=== PATIENT | male | born 1960 | race Caucasian/White ===

== ENCOUNTER → 2017-09-13 | Outpatient (REF) | payer OTHER ==
[2017-09-13 15:45] LABS: CARBOXYHEMOGLOBIN 1.6 % (0.0-1.5)
[2017-09-15 10:10] LABS: ERYTHROPOIETIN 8.7 mIU/mL (2.6-18.5)
== END ==
LOC: M LAB REF 15:34
DX: R71.8 Other abnormality of red blood cells (principal)

== ENCOUNTER → 2017-09-26 | Outpatient (REF) | payer OTHER ==
[2017-09-26 20:22] LABS: FERRITIN 281 NG/ML (26-388); IRON (FE) 117 UG/DL (65-175); PERCENT SATURATION 37.1 % (19.7-50.0); TOTAL IRON BINDING CAPACITY 315 UG/DL (250-450)
== END ==
LOC: M LAB REF 19:02
DX: D75.1 Secondary polycythemia (principal)
CPT/HCPCS: 83550

== ENCOUNTER → 2017-10-03 | Outpatient (CLI) | payer OTHER ==
[~2017-10-03] MED LIST: GASTROGRAFIN SOLUTION 30ML (Q9963) As Ordered; ISOVUE-370 76% 100ML VIAL (Q9967) As Ordered
== END ==
LOC: M RAD 12:14
DX: D75.1 Secondary polycythemia (principal); N20.0 Calculus of kidney
CPT/HCPCS: Q9963

== ENCOUNTER → 2018-07-23 | Outpatient (CLI) | payer OTHER | LOC: M RAD 10:53 | DX: D75.1 Secondary polycythemia (principal); D18.03 Hemangioma of intra-abdominal structures; K76.0 Fatty (change of) liver, not elsewhere classified; N20.0 Calculus of kidney | CPT/HCPCS: Q9963 ==

== ENCOUNTER → 2022-09-07 | Outpatient (CLI) | payer OTHER ==
[~2022-09-07] MED LIST changes: -GASTROGRAFIN SOLUTION 30ML (Q9963) As Ordered; +HYDR12.55 PO; -ISOVUE-370 76% 100ML VIAL (Q9967) As Ordered; +RAMI1CAP26 PO
== END ==
LOC: M RAD 14:57
PROVIDERS: ATTEND Family Medicine
DX: R51.9 Headache, unspecified (principal); S06.0X0S Concussion without loss of consciousness, sequela; I10 Essential (primary) hypertension

== ENCOUNTER → 2022-09-15 | Outpatient (CLI) | payer OTHER ==
[2022-09-15 12:40] LABS: HEMATOCRIT 47.9 % (42.0-52.0); HEMOGLOBIN 17.2 g/dl (13.5-17.5)
== END ==
LOC: M LAB 12:04
PROVIDERS: ATTEND Family Medicine
DX: D75.1 Secondary polycythemia (principal); I10 Essential (primary) hypertension

== ENCOUNTER → 2022-10-11 | Outpatient (CLI) | payer OTHER | LOC: M LABSMTC 10:14 | PROVIDERS: ATTEND Anesthesiology | DX: Z01.812 Encounter for preprocedural laboratory examination (principal); Z20.822 Contact with and (suspected) exposure to COVID-19 ==

== ENCOUNTER 2022-10-16 12:37 | Day surgery (SDC) | payer OTHER ==
[~2022-10-16] VITALS: Ht 177.8 cm; Wt 84.8 kg
[~2022-10-16 12:37] MED LIST changes: +NS 1,000 ML IV ONE
[2022-10-16] MEDS ORDERED: propofoL 200 MG/20 ML VIAL As Ordered ONE (12:45)
[2022-10-16] MEDS ORDERED: LIDOCAINE 2% 100MG/5ML SDV (FOR ANES.) As Ordered ONE (12:45)
[2022-10-16 13:55] VITALS: BP 132/63
== END 2022-10-16 14:05 | disposition home or self-care (01) ==
LOC: M OPP 12:37
PROVIDERS: ATTEND Internal Medicine Gastroenterology
DX: Z12.11 Encounter for screening for malignant neoplasm of colon (principal); K64.0 First degree hemorrhoids; Z79.899 Other long term (current) drug therapy; I10 Essential (primary) hypertension; K76.0 Fatty (change of) liver, not elsewhere classified

== ENCOUNTER → 2023-05-01 | Outpatient (CLI) | payer OTHER ==
[~2023-05-01] MED LIST changes: -NS 1,000 ML IV ONE
== END ==
LOC: M SLEEP HO 11:20
PROVIDERS: ATTEND Internal Medicine Cardiovascular Disease
DX: G47.30 Sleep apnea, unspecified (principal); R06.83 Snoring

== ENCOUNTER → 2024-04-30 | Outpatient (CLI) | payer OTHER ==
[~2024-04-30] MED LIST changes: +RAMI10CA64 PO; -RAMI1CAP26 PO
[2024-04-30 09:55] LABS: BASO # 0.1 10^3/uL (0.0-0.2); BASO % 0.8 % (0.0-1.0); EOS # 0.3 10^3/uL (0.0-0.5); EOS % 3.7 % (0.0-3.0); HEMATOCRIT 50.4 % (42.0-52.0); HEMOGLOBIN 17.6 g/dl (13.5-17.5); LYMPH # 2.1 10^3/uL (1.5-5.0); LYMPH % 27.5 % (24.0-44.0); MEAN CORPUSCULAR HEMOGLOBIN 31.4 pg (27.0-33.0); MEAN CORPUSCULAR HGB CONC 34.9 g/dl (32.0-36.5); MONO # 0.5 10^3/uL (0.0-0.8); MONO % 6.8 % (2.0-8.0); NEUTROPHILS # 4.6 10^3/uL (1.5-8.5); NEUTROPHILS % 60.8 % (36.0-66.0); PLATELET COUNT, AUTOMATED 173 10^3/uL (150-450); WHITE BLOOD COUNT 7.6 10^3/uL (4.0-10.0)
[2024-04-30 09:56] LABS: APPEARANCE, URINE CLEAR (CLEAR); BACTERIA, URINE AUTO NEGATIVE (NEGATIVE); BILIRUBIN, URINE AUTO NEGATIVE (NEGATIVE); BLOOD, URINE BLOOD NEGATIVE (NEGATIVE); COLOR, URINE YELLOW (YELLOW); GLUCOSE, URINE (UA) AUTO NEGATIVE (NEGATIVE); KETONE, URINE AUTO NEGATIVE (NEGATIVE); LEUKOCYTE ESTERASE, URINE AUTO NEGATIVE (NEGATIVE); NITRITE, URINE AUTO NEGATIVE (NEGATIVE); PROTEIN, URINE AUTO NEGATIVE (NEGATIVE); RBC, URINE AUTO 2 /HPF (0-3); SPECIFIC GRAVITY URINE AUTO 1.018 (1.002-1.035); SQUAMOUS EPITHELIAL CELL UR AU 0 /HPF (0-6); UROBILINOGEN, URINE AUTO 0.2 mg/dL (0.0-2.0); WBC, URINE AUTO 1 /HPF (0-3)
[2024-04-30 10:30] LABS: MALB URINE SIEMENS < 3.0 MG/L
[2024-04-30 10:40] LABS: ALKALINE PHOSPHATASE 81 U/L (46-116); ALT/SGPT 47 U/L (7.0-40); AST/SGOT 30 U/L (<34); BILIRUBIN,TOTAL 1.9 MG/DL (0.3-1.2); BLOOD UREA NITROGEN 17 MG/DL (9-23); CALCIUM LEVEL 9.1 MG/DL (8.3-10.6); CARBON DIOXIDE LEVEL 32 MMOL/L (20-31); CHLORIDE LEVEL 101 MMOL/L (98-107); CHOLESTEROL LEVEL 215 MG/DL (<200); CHOLESTEROL RISK RATIO 5.82 (<5); CREATININE FOR GFR 1.13 MG/DL (0.70-1.30); GLOMERULAR FILTRATION RATE > 60.0 (>49); GLUCOSE, FASTING 98 MG/DL (74-106); HDL CHOLESTEROL 36.9 MG/DL (>40); LDL CHOLESTEROL 148.7 MG/DL (<100); NON-HDL-C 178.1 MG/DL; SODIUM LEVEL 139 MMOL/L (136-145); TRIGLYCERIDES LEVEL 147 MG/DL (<150)
[2024-04-30 10:41] LABS: CREATININE, URINE 244.4 MG/DL; MAU/CREAT RATIO 1.2 MCG/MG (0.0-30.0)
== END ==
LOC: M LAB 09:09
PROVIDERS: ATTEND Family Medicine
DX: E78.5 Hyperlipidemia, unspecified (principal); I10 Essential (primary) hypertension

== ENCOUNTER → 2024-06-26 | Outpatient (CLI) | payer OTHER ==
[2024-06-26 11:57] LABS: BASO # 0.1 10^3/uL (0.0-0.2); BASO % 0.7 % (0.0-1.0); EOS # 0.1 10^3/uL (0.0-0.5); EOS % 1.3 % (0.0-3.0); HEMATOCRIT 49.4 % (42.0-52.0); HEMOGLOBIN 17.3 g/dl (13.5-17.5); LYMPH # 2.6 10^3/uL (1.5-5.0); LYMPH % 30.7 % (24.0-44.0); MEAN CORPUSCULAR HEMOGLOBIN 31.1 pg (27.0-33.0); MEAN CORPUSCULAR VOLUME 88.7 fl (80.0-96.0); MONO # 0.6 10^3/uL (0.0-0.8); MONO % 6.6 % (2.0-8.0); NEUTROPHILS # 5.1 10^3/uL (1.5-8.5); NEUTROPHILS % 60.3 % (36.0-66.0); PLATELET COUNT, AUTOMATED 176 10^3/uL (150-450); RED BLOOD COUNT 5.57 10^6/uL (4.30-6.10); WHITE BLOOD COUNT 8.4 10^3/uL (4.0-10.0)
[2024-06-26 12:04] LABS: APPEARANCE, URINE CLEAR (CLEAR); BACTERIA, URINE AUTO NEGATIVE (NEGATIVE); BILIRUBIN, URINE AUTO NEGATIVE (NEGATIVE); BLOOD, URINE BLOOD NEGATIVE (NEGATIVE); COLOR, URINE YELLOW (YELLOW); GLUCOSE, URINE (UA) AUTO NEGATIVE (NEGATIVE); KETONE, URINE AUTO NEGATIVE (NEGATIVE); LEUKOCYTE ESTERASE, URINE AUTO NEGATIVE (NEGATIVE); MUCUS, URINE SMALL (NEGATIVE); NITRITE, URINE AUTO NEGATIVE (NEGATIVE); PROTEIN, URINE AUTO NEGATIVE (NEGATIVE); RBC, URINE AUTO 0 /HPF (0-3); SPECIFIC GRAVITY URINE AUTO 1.015 (1.002-1.035); SQUAMOUS EPITHELIAL CELL UR AU 0 /HPF (0-6); UROBILINOGEN, URINE AUTO 0.2 mg/dL (0.0-2.0); WBC, URINE AUTO 0 /HPF (0-3)
[2024-06-26 12:13] LABS: ERYTHROCYTE SEDIMENTATION RATE 14 mm/hr (0-20)
[2024-06-26 13:29] LABS: C REACTIVE PROTEIN QUANTITATIV < 0.40 MG/DL (<1.0)
[2024-06-26 13:34] LABS: ALBUMIN 3.9 G/DL (3.2-5.2); ALKALINE PHOSPHATASE 88 U/L (46-116); ALT/SGPT 55 U/L (7.0-40); AST/SGOT 29 U/L (<34); BILIRUBIN,TOTAL 1.7 MG/DL (0.3-1.2); BLOOD UREA NITROGEN 15 MG/DL (9-23); CALCIUM LEVEL 9.5 MG/DL (8.3-10.6); CARBON DIOXIDE LEVEL 31 MMOL/L (20-31); CHLORIDE LEVEL 99 MMOL/L (98-107); CREATININE FOR GFR 1.03 MG/DL (0.70-1.30); GLOMERULAR FILTRATION RATE > 60.0 (>49); GLUCOSE, FASTING 103 MG/DL (74-106); POTASSIUM SERUM 3.9 MMOL/L (3.5-5.1); SODIUM LEVEL 137 MMOL/L (136-145); TOTAL PROTEIN 7.3 G/DL (5.7-8.2)
[2024-06-30 03:09] LABS: NT PRO BNP SO < 36 pg/mL (<125)
[2024-06-30 14:47] LABS: EBV VIRAL CAPSID AG IGG > 750.00 U/mL (<18.00); EBV VIRAL CAPSID AG IGM < 36.00 U/mL (<36.00)
== END ==
LOC: M LAB 11:15
PROVIDERS: ATTEND Family Medicine
DX: I10 Essential (primary) hypertension (principal)

== ENCOUNTER → 2024-07-02 | Outpatient (CLI) | payer OTHER ==
[2024-07-02 15:37] LABS: BASO # 0.1 10^3/uL (0.0-0.2); BASO % 0.9 % (0.0-1.0); EOS # 0.2 10^3/uL (0.0-0.5); HEMATOCRIT 46.6 % (42.0-52.0); HEMOGLOBIN 16.6 g/dl (13.5-17.5); LYMPH # 2.7 10^3/uL (1.5-5.0); LYMPH % 35.4 % (24.0-44.0); MEAN CORPUSCULAR HEMOGLOBIN 30.8 pg (27.0-33.0); MEAN CORPUSCULAR HGB CONC 35.6 g/dl (32.0-36.5); MEAN CORPUSCULAR VOLUME 86.5 fl (80.0-96.0); MONO # 0.5 10^3/uL (0.0-0.8); MONO % 6.9 % (2.0-8.0); NEUTROPHILS % 53.3 % (36.0-66.0); PLATELET COUNT, AUTOMATED 162 10^3/uL (150-450); RED BLOOD COUNT 5.39 10^6/uL (4.30-6.10)
[2024-07-02 16:22] LABS: ALBUMIN 3.7 G/DL (3.2-5.2); ALKALINE PHOSPHATASE 99 U/L (46-116); ALT/SGPT 42 U/L (7.0-40); AST/SGOT 21 U/L (<34); BILIRUBIN,TOTAL 1.2 MG/DL (0.3-1.2); BLOOD UREA NITROGEN 13 MG/DL (9-23); CALCIUM LEVEL 9.3 MG/DL (8.3-10.6); CARBON DIOXIDE LEVEL 32 MMOL/L (20-31); CHLORIDE LEVEL 100 MMOL/L (98-107); GLOMERULAR FILTRATION RATE > 60.0 (>49); GLUCOSE, FASTING 122 MG/DL (74-106); POTASSIUM SERUM 3.6 MMOL/L (3.5-5.1); SODIUM LEVEL 136 MMOL/L (136-145); TOTAL PROTEIN 7.1 G/DL (5.7-8.2)
[2024-07-03 06:59] LABS: WHITE BLOOD COUNT 7.6 10^3/uL (4.0-10.0)
== END ==
LOC: M LAB 15:05
PROVIDERS: ATTEND Family Medicine
DX: R53.83 Other fatigue (principal); R06.02 Shortness of breath; I10 Essential (primary) hypertension

== ENCOUNTER → 2024-07-29 | Outpatient (CLI) | payer OTHER ==
[2024-07-29 14:07] LABS: FREE T4 1.27 NG/DL (0.89-1.76); THYROID STIMULATING HORMONE 1.962 uIU/ML (0.55-4.78)
== END ==
LOC: M LAB 13:12
PROVIDERS: ATTEND Internal Medicine Cardiovascular Disease
DX: I49.1 Atrial premature depolarization (principal)

== ENCOUNTER → 2024-09-18 | Outpatient (CLI) | payer OTHER | LOC: M CARPUL 13:06 | PROVIDERS: ATTEND Registered Nurse | DX: R06.02 Shortness of breath (principal); I44.4 Left anterior fascicular block; I45.10 Unspecified right bundle-branch block ==

== ENCOUNTER → 2024-10-06 | Outpatient (CLI) | payer OTHER ==
[2024-10-06 14:01] LABS: ALBUMIN 3.7 G/DL (3.2-5.2); BLOOD UREA NITROGEN 20 MG/DL (9-23); CALCIUM LEVEL 9.2 MG/DL (8.3-10.6); CARBON DIOXIDE LEVEL 31 MMOL/L (20-31); CHLORIDE LEVEL 100 MMOL/L (98-107); CREATININE FOR GFR 0.97 MG/DL (0.70-1.30); GLOMERULAR FILTRATION RATE > 60.0 (>49); GLUCOSE, FASTING 101 MG/DL (74-106); MAGNESIUM LEVEL 1.8 MG/DL (1.8-2.4); PHOSPHORUS LEVEL 3.9 MG/DL (2.4-5.1); POTASSIUM SERUM 3.7 MMOL/L (3.5-5.1); SODIUM LEVEL 139 MMOL/L (136-145)
== END ==
LOC: M LAB 13:10
PROVIDERS: ATTEND Registered Nurse
DX: I10 Essential (primary) hypertension (principal)

== ENCOUNTER → 2024-10-09 | Outpatient (CLI) | payer OTHER ==
[2024-10-09 10:28] LABS: BASO # 0.1 10^3/uL (0.0-0.2); BASO % 0.6 % (0.0-1.0); EOS # 0.3 10^3/uL (0.0-0.5); EOS % 3.1 % (0.0-3.0); HEMATOCRIT 49.2 % (42.0-52.0); HEMOGLOBIN 17.3 g/dl (13.5-17.5); LYMPH # 2.3 10^3/uL (1.5-5.0); LYMPH % 28.8 % (24.0-44.0); MEAN CORPUSCULAR HGB CONC 35.2 g/dl (32.0-36.5); MEAN CORPUSCULAR VOLUME 85.3 fl (80.0-96.0); MONO # 0.5 10^3/uL (0.0-0.8); MONO % 6.3 % (2.0-8.0); NEUTROPHILS # 4.9 10^3/uL (1.5-8.5); NEUTROPHILS % 60.8 % (36.0-66.0); PLATELET COUNT, AUTOMATED 212 10^3/uL (150-450); RED BLOOD COUNT 5.77 10^6/uL (4.30-6.10)
[2024-10-09 10:33] LABS: ERYTHROCYTE SEDIMENTATION RATE 26 mm/hr (0-20)
[2024-10-09 11:00] LABS: ALBUMIN 3.9 G/DL (3.2-5.2); ALKALINE PHOSPHATASE 83 U/L (40-129); ALT/SGPT 39 U/L (7.0-40); AST/SGOT 20 U/L (<34); BILIRUBIN,TOTAL 1.2 MG/DL (0.3-1.2); BLOOD UREA NITROGEN 19 MG/DL (9-23); C REACTIVE PROTEIN QUANTITATIV < 0.50 MG/DL (<1.0); CALCIUM LEVEL 9.5 MG/DL (8.3-10.6); CARBON DIOXIDE LEVEL 32 MMOL/L (20-31); CHLORIDE LEVEL 102 MMOL/L (98-107); CREATININE FOR GFR 1.01 MG/DL (0.70-1.30); GLOMERULAR FILTRATION RATE > 60.0 (>49); GLUCOSE, FASTING 101 MG/DL (74-106); SODIUM LEVEL 140 MMOL/L (136-145); TOTAL PROTEIN 7.4 G/DL (5.7-8.2)
[2024-10-09 11:02] LABS: RHEUMATOID FACTOR QUANT 11.7 IU/ML (<14)
== END ==
LOC: M LAB 09:36
PROVIDERS: ATTEND Family Medicine
DX: I10 Essential (primary) hypertension (principal); E78.5 Hyperlipidemia, unspecified; M06.4 Inflammatory polyarthropathy

== ENCOUNTER → 2024-12-31 | Outpatient (CLI) | payer OTHER ==
[2024-12-31 18:55] LABS: BASO # 0.1 10^3/uL (0.0-0.2); BASO % 0.5 % (0.0-1.0); EOS # 0.2 10^3/uL (0.0-0.5); EOS % 1.4 % (0.0-3.0); HEMATOCRIT 45.7 % (42.0-52.0); HEMOGLOBIN 16.2 g/dl (13.5-17.5); LYMPH % 24.7 % (24.0-44.0); MEAN CORPUSCULAR HEMOGLOBIN 30.6 pg (27.0-33.0); MEAN CORPUSCULAR HGB CONC 35.4 g/dl (32.0-36.5); MEAN CORPUSCULAR VOLUME 86.4 fl (80.0-96.0); MONO % 7.9 % (2.0-8.0); NEUTROPHILS # 7.9 10^3/uL (1.5-8.5); NEUTROPHILS % 64.8 % (36.0-66.0); PLATELET COUNT, AUTOMATED 260 10^3/uL (150-450); RED BLOOD COUNT 5.29 10^6/uL (4.30-6.10)
[2024-12-31 19:11] LABS: ERYTHROCYTE SEDIMENTATION RATE 64 mm/hr (0-20)
[2024-12-31 19:26] LABS: C REACTIVE PROTEIN QUANTITATIV 9.25 MG/DL (<1.0)
[2024-12-31 19:28] LABS: URIC ACID 6.5 MG/DL (3.7-9.2)
[2024-12-31 19:30] LABS: ALBUMIN 3.5 G/DL (3.2-5.2); BILIRUBIN,TOTAL 1.4 MG/DL (0.3-1.2); CREATININE FOR GFR 0.97 MG/DL (0.70-1.30); GLOMERULAR FILTRATION RATE 87.2 (>49); PHOSPHORUS LEVEL 3.6 MG/DL (2.4-5.1); POTASSIUM SERUM 3.5 MMOL/L (3.5-5.1); RHEUMATOID FACTOR QUANT 73.6 IU/ML (<14); TOTAL PROTEIN 7.3 G/DL (5.7-8.2)
[2025-01-01 14:19] LABS: WHITE BLOOD COUNT 12.2 10^3/uL (4.0-10.0)
== END ==
LOC: M LAB 16:51
PROVIDERS: ATTEND Family Medicine
DX: M06.4 Inflammatory polyarthropathy (principal)